=== PATIENT | male | born 1945 | race Caucasian/White ===

== ENCOUNTER 2017-02-27 11:09 | Emergency (ER) | payer MEDICARE, MEDICAID ==
[~2017-02-27] VITALS: Ht 167.6 cm; Wt 83.0 kg
[~2017-02-27 11:09] MED LIST: ABIL10 PO; ATEN-42 PO; CIME400T PO; CLOP75TA33 PO; D-ME473S8 PO; HYDR-3162 PO; HYDR453. TOP; LISI-604 PO; NAPR-681 PO; SERT-112 PO; SIMV40TA5 PO; TEMA30CA PO
[2017-02-27 11:17] VITALS: BP 144/78
== END 2017-02-27 12:47 | disposition home or self-care (01) ==
LOC: ER 11:09
DX: Z76.0 Encounter for issue of repeat prescription (principal); I10 Essential (primary) hypertension; E78.00 Pure hypercholesterolemia, unspecified
CPT/HCPCS: 99281

== ENCOUNTER 2017-06-27 15:54 | Emergency (ER) | payer MEDICARE, MEDICAID ==
[~2017-06-27] VITALS: Ht 160 cm; Wt 82.0 kg
[2017-06-27 15:55] VITALS: BP 149/75
== END 2017-06-27 18:20 | disposition home or self-care (01) ==
LOC: ER 15:54
DX: M79.671 Pain in right foot (principal); M79.672 Pain in left foot; G89.29 Other chronic pain; I10 Essential (primary) hypertension; E78.00 Pure hypercholesterolemia, unspecified; E11.9 Type 2 diabetes mellitus without complications
CPT/HCPCS: 99283

== ENCOUNTER 2017-07-01 14:16 | Emergency (ER) | payer MEDICARE, MEDICAID ==
[~2017-07-01] VITALS: Ht 167.6 cm; Wt 82.0 kg
[2017-07-01] MEDS ORDERED: HYDROCODONE/APAP 7.5/325MG 1 TAB TABLET PO ONE (17:45)
[2017-07-01 18:14] VITALS: BP 158/76
== END 2017-07-01 18:32 | disposition home or self-care (01) ==
LOC: ER 14:57
DX: Z76.0 Encounter for issue of repeat prescription (principal); E11.40 Type 2 diabetes mellitus with diabetic neuropathy, unspecified; I10 Essential (primary) hypertension; E78.00 Pure hypercholesterolemia, unspecified; Z86.73 Personal history of transient ischemic attack (TIA), and cerebral infarction without residual deficits
CPT/HCPCS: 99283